=== PATIENT | male | born 1945 | race Caucasian/White ===

== ENCOUNTER → 2023-05-06 14:22 | Outpatient (REF) | payer MEDICARE, SELFPAY | LOC: RAD 14:22 | PROVIDERS: ATTENDING PHYSICIAN Internal Medicine | DX: M48.062 Spinal stenosis, lumbar region with neurogenic claudication (principal) | CPT/HCPCS: 72110 ==

== ENCOUNTER → 2024-04-22 09:56 | Outpatient (REF) | payer MEDICARE, SELFPAY | LOC: EMG 09:56 | PROVIDERS: ATTENDING PHYSICIAN Internal Medicine | DX: G62.89 Other specified polyneuropathies (principal) | CPT/HCPCS: 95886; 95910 ==